=== PATIENT | male | born 1950 | race Hispanic/Latino ===

== ENCOUNTER 2021-03-08 06:58 | Day surgery (SDC) | payer MEDICARE, OTHER ==
[2021-03-04 13:36] LABS: Hematocrit 45.6 % (35.5-45.6); Mean Corpuscular HGB Conc 33 % (32-34); Mean Corpuscular Volume 96 fl (84-94); Platelet Count 240 K/mm3 (140-440); Red Blood Count 4.77 M/mm3 (3.65-5.03); Red Cell Distribution Width 14.5 % (13.2-15.2)
[2021-03-04 13:51] LABS: Blood Urea Nitrogen 12 mg/dL (9-20); Calcium 9.1 mg/dL (8.4-10.2); Hemolysis Index 1
[2021-03-04 14:02] LABS: BUN/Creatinine Ratio 17
--- NOTE | 2021-03-04 15:16 | Anesthesia Consultation ---
Anesthesia Consult and Med Hx Date of service: 03/08/21 - Airway ROM Head & Neck: Inadequate (restricted extension) Mental/Hyoid Distance: Adequate Mallampati Class: Class III Intubation Access Assessment: Possibly Difficult - Pulmonary Exam CTA: Yes - Cardiac Exam Cardiac Exam: RRR - Pre-Operative Health Status ASA Pre-Surgery Classification: ASA3 Proposed Anesthetic Plan: General - Pulmonary Hx Smoking: Yes (former smoker quit 30 yrs) Hx Respiratory Symptoms: No Hx Sleep Apnea: Yes (+ CPAP) - Cardiovascular System Hx Hypertension: Yes Hx Heart Attack/AMI: No (reports recent cardiology visit w/ TTE and ST; records requested) Hx Percutaneous Transluminal Coronary Angioplasty (PTCA): No Hx Cardia Arrhythmia: No - Central Nervous System Hx Neuromuscular Disorder: Yes (Parkinson's disease) CVA: No - Gastrointestinal Hx Gastroesophageal Reflux Disease: Yes - Endocrine Hx Renal Disease: No Hx Liver Disease: No Hx Non-Insulin Dependent Diabetes: Yes Hx Thyroid Disease: No - Other Systems Hx Obesity: Yes (BMI 33) - Additional Comments Anesthesia Medical History Comments: Patient reports excessive salivation 2/2 Parkinson's disease and occasional dysphagia/coughing with pills and liquids. Patient states that he has not had problem when missing 1 or 2 doses of usual meds however he was instructed to continue Parkinson's medications DOS. He also complains of left parasternal pain related to a prior fall for which imaging/workup has shown no fracture and may be related to cartilage injury.
[~2021-03-08 06:58] MED LIST: LACTATED RINGERS 1,000 ML IV SCH
[2021-03-08] MEDS ORDERED: ONDANSETRON 4 MG/2 ML INJ IV PRN (07:22)
[2021-03-08] MEDS ORDERED: HYDROmorphone 1 MG/1 ML INJ IV PRN ×2 (07:22)
--- NOTE | 2021-03-08 07:22 | Anesthesia Day of Surgery ---
Anesthesia Day of Surgery - Day of Surgery Patient Examined: Yes Patient H&P Reviewed: Yes Patient is NPO: Yes
[2021-03-08] MEDS ORDERED: MIDAZOLAM 2 MG/2 ML INJ IV NR (08:00)
[2021-03-08] MEDS ORDERED: propofoL 200 MG/20 ML VIAL IV ONE (09:01)
[2021-03-08] MEDS ORDERED: WATER FOR IRRIG STERILE 2000 ML IR ONE (09:25)
[2021-03-08] MEDS ORDERED: IOHEXOL 300 MG/ML 50ML IV ONE (09:25)
[2021-03-08] MEDS ORDERED: LIDOCAINE PF 100 MG/5 ML (CARDIAC SYRINGE) IV ONE (09:38)
[2021-03-08] MEDS ORDERED: ONDANSETRON 4 MG/2 ML INJ ONE (09:38)
--- NOTE | 2021-03-08 09:47 | Post Operative Note ---
Date of procedure: 03/08/21 Pre-op diagnosis: r hydro stones Post-op diagnosis: same Findings: severe hydro strictures Procedure: dil beth morrow Anesthesia: GETA Surgeon: ELISHA PARSONS Estimated blood loss: none Pathology: none Condition: stable Disposition: PACU
--- NOTE | 2021-03-08 09:49 | Discharge Summary ---
Short Stay Discharge Plan Activity: other (no straining ) Weight Bearing Status: Full Weight Bearing Diet: low fat, low cholesterol, low salt Special Instructions: other (inc fluids ) Durable Medical Equipment Needed Upon Discharge: other (hong care ) Follow up with: DR KAROLINA [Other] - 7 Days ELISHA PARSONS MD [Staff Physician] - 7 Days
[2021-03-08 11:53] VITALS: BP 138/82
--- NOTE | 2021-03-08 12:43 | Fluoroscopy Report ---
Retrograde urography right INDICATION: Hydronephrosis. Nephrolithiasis IMPRESSION: Successful placement of a right double-J ureteral stent. Mild right hydronephrosis. Fluoroscopy time: 1. 5 minutes. Fluoroscopic images: 9 views. Signer Name: Kirby Agosto MD Signed: 03/08/2021 12:35 PM Workstation Name: [id number]
--- NOTE | 2021-03-08 13:00 | Post Anesthesia Evaluation ---
- Post Anesthesia Evaluation Patient Participated: Yes Airway Patent: Yes Stable Respiratory Function: Yes Nausea/Vomiting: No Temp > 96.8F: Yes Pain Manageable: Yes Adequeate Hydration: Yes Anesthesia Complications: No Block Receding Appropriately: Not Applicable Patient on Ventilator: No
--- NOTE | 2021-03-11 12:21 | Operative Report ---
DATE OF SURGERY: 03/08/2021 PREOPERATIVE DIAGNOSIS: Severe right hydronephrosis, right renal stones. POSTOPERATIVE DIAGNOSIS: Severe right hydronephrosis, right renal stones with evidence of urethral stricture and UPJ narrowing. PROCEDURES: Cystoscopy, urethral dilatation, right retrograde, right double-J stent. SURGEON: Dr. Foster. ANESTHESIA: General. FINDINGS: This is a gentleman with moderately severe right hydronephrosis. He has intermittent pain. He now presents for treatment. DESCRIPTION OF PROCEDURE: The patient was brought to the OR and placed on the operating table. Following induction of anesthesia, placed in lithotomy position, prepped and draped in the usual sterile fashion. Cystourethroscopy showed a stricture. A wire coiled in the kidney. This was dilated to 20 Pashto. At this point, the bladder was entered. There was some mild trilobar hypertrophy. The bladder was well visualized with 30 and 70 degree lenses. There were no papillary lesions. At that point, the UPJ retrograde showed a severe narrowing, almost a kink in the UPJ. No filling defect. A wire unkinked the ureter and a double-J was placed. There were no stones that were obvious in the ureter. No ureteroscopy was performed. The patient tolerated the procedure well. The plan will be follow up catheter removal and then a nuclear scan to assess the function and possible lithotripsy. TID: [id number] RECEIPT: [id number] JOSHUA/STARLA
== END 2021-03-08 12:00 | disposition home or self-care (01) ==
LOC: OR 06:58
PROVIDERS: ATTEND Urology
DX: N13.2 Hydronephrosis with renal and ureteral calculous obstruction (principal); Z20.822 Contact with and (suspected) exposure to COVID-19; I10 Essential (primary) hypertension; E78.00 Pure hypercholesterolemia, unspecified; G47.30 Sleep apnea, unspecified; K21.9 Gastro-esophageal reflux disease without esophagitis; E11.9 Type 2 diabetes mellitus without complications; E66.9 Obesity, unspecified; Z72.89 Other problems related to lifestyle; Z88.0 Allergy status to penicillin; Z79.899 Other long term (current) drug therapy; Z79.84 Long term (current) use of oral hypoglycemic drugs; Z79.82 Long term (current) use of aspirin; Z98.41 Cataract extraction status, right eye; Z98.42 Cataract extraction status, left eye; Z90.49 Acquired absence of other specified parts of digestive tract; Z98.890 Other specified postprocedural states; Z68.33 Body mass index [BMI] 33.0-33.9, adult; Z87.891 Personal history of nicotine dependence
CPT/HCPCS: 36415; 52332; 74420; 80048; 82962; 85027; A4217; C1726; C1769; C2617; J1956; J2001; J2405; J2704; J7120; Q9967; U0003

== ENCOUNTER 2021-06-24 07:08 | Day surgery (SDC) | payer OTHER ==
[~2021-06-24 07:08] MED LIST changes: +IOHEXOL 300 MG/ML 50ML IV ONE; +WATER FOR IRRIG STERILE 1,500 ML BOTTLE IR ONE; +WATER FOR IRRIG STERILE 2000 ML IR ONE
--- NOTE | 2021-06-24 09:37 | Anesthesia Consultation ---
Anesthesia Consult and Med Hx Date of service: 06/24/21 - Airway Anesthetic Teeth Evaluation: Good ROM Head & Neck: Adequate Mental/Hyoid Distance: Adequate Mallampati Class: Class II Intubation Access Assessment: Probably Good (previous LMA 4) - Pre-Operative Health Status ASA Pre-Surgery Classification: ASA3 Proposed Anesthetic Plan: General - Pulmonary Hx Smoking: Yes (former smoker quit 30 yrs) Hx Respiratory Symptoms: No Hx Sleep Apnea: Yes (no CPAP recently) - Cardiovascular System Hx Hypertension: Yes (took antihypertensives this morning) Hx Heart Attack/AMI: No (normal EF, neg perfusion study this year) Hx Percutaneous Transluminal Coronary Angioplasty (PTCA): No Hx Cardia Arrhythmia: No - Central Nervous System Hx Neuromuscular Disorder: Yes (Parkinson's disease; took usual meds this morning) CVA: No - Gastrointestinal Hx Gastroesophageal Reflux Disease: Yes (controlled with prilosec) - Endocrine Hx Renal Disease: No Hx Liver Disease: No Hx Non-Insulin Dependent Diabetes: Yes Hx Thyroid Disease: No - Other Systems Hx Obesity: Yes (BMI 33) - Additional Comments Anesthesia Medical History Comments: No hx anesthetic complications.
--- NOTE | 2021-06-24 09:37 | Anesthesia Day of Surgery ---
Anesthesia Day of Surgery - Day of Surgery Patient Examined: Yes Patient H&P Reviewed: Yes Patient is NPO: Yes Beta Blockers: Yes (propanolol)
[2021-06-24 09:52] LABS: Blood Urea Nitrogen 15 mg/dL (9-20); Calcium 9.4 mg/dL (8.4-10.2); Hemolysis Index 117
[2021-06-24] MEDS ORDERED: GENTAMICIN/NS 80 MG/100 ML 100 ML IV NR (10:07)
[2021-06-24] MEDS ORDERED: GENTAMICIN 40 MG/ML VIAL 2 ML ONE (10:10)
[2021-06-24 10:17] LABS: BUN/Creatinine Ratio 30
[2021-06-24] MEDS ORDERED: LIDOCAINE PF 100 MG/5 ML (CARDIAC SYRINGE) IV ONE (10:29)
[2021-06-24] MEDS ORDERED: propofoL 200 MG/20 ML VIAL IV ONE (10:29)
[2021-06-24] MEDS ORDERED: ONDANSETRON 4 MG/2 ML INJ ONE (10:29)
[2021-06-24] MEDS ORDERED: fentaNYL 100 MCG/2 ML INJ ONE (10:29)
[2021-06-24] MEDS ORDERED: dexAMETHasone 20 MG/5 ML VIAL ONE (10:32)
[2021-06-24] MEDS ORDERED: PHENYLEPHRINE/NS 1,000 MCG/10 ML SYRINGE (OR USE) IV ONE (11:40)
[2021-06-24] MEDS ORDERED: WATER FOR IRRIG STERILE 1,500 ML BOTTLE IR ONE (11:47)
[2021-06-24] MEDS ORDERED: WATER FOR IRRIG STERILE 2000 ML IR ONE (11:47)
--- NOTE | 2021-06-24 11:59 | Short Stay Summary ---
Short Stay Documentation Date of service: 06/24/21 - History H&P: obtained from office - Allergies and Medications Current Medications: Allergies Penicillins Allergy (Verified 03/03/21 11:59) Swelling Home Medications Medication Instructions Recorded Confirmed Last Taken Type Aflibercept [Eylea] 2 mg INTRAVITRE [id number] 03/04/21 06/09/21 Unknown History Alfuzosin HCl [Alfuzosin HCl ER] 10 mg PO DAILY 03/04/21 06/09/21 03/07/21 09:00 History Aspirin [Aspirin BABY CHEW TAB] 81 mg PO DAILY 03/04/21 06/09/21 03/01/21 09:00 History Carbidopa/Levodopa [Rytary ER 48.75 mg PO TID 03/04/21 06/24/21 06/24/21 07:00 History 48.75 mg-195 mg Cap] Ergocalciferol (Vitamin D2) 2,000 units PO DAILY 03/04/21 06/09/21 03/07/21 09:00 History [Vitamin D2] Finasteride [Proscar] 5 mg PO DAILY 03/04/21 06/09/21 03/07/21 09:00 History Krill/Om-3/Dha/Epa/Phospho/Ast 1 tab PO DAILY 03/04/21 06/09/21 03/07/21 09:00 History [Megared [place]-3 Krill 350 mg] Losartan/Hydrochlorothiazide 50 mg PO DAILY 03/04/21 06/09/21 03/07/21 09:00 History [Losartan-Hctz 50-12.5 mg Tab] Lutein 10 mg PO BID 03/04/21 06/09/21 03/07/21 17:00 History Multivit-Mins/Iron/Folic/Lycop 1 tab PO DAILY 03/04/21 06/09/21 03/07/21 09:00 History [Centrum Men's Tablet] Omeprazole Magnesium [Prilosec] 10 mg PO DAILY 03/04/21 06/24/21 06/24/21 07:00 History Pramipexole [Mirapex] 1.5 mg PO DAILY 03/04/21 06/24/21 06/24/21 07:00 History Rasagiline Mesylate [Azilect] 1 mg PO QDAY 03/04/21 06/24/21 06/24/21 10:03 History Simvastatin [Zocor] 5 mg PO DAILY 03/04/21 06/09/21 03/07/21 20:00 History Vardenafil HCl [Levitra] 20 mg PO PRN PRN 03/04/21 06/09/21 Unknown History clonazePAM [Klonopin] 1 mg PO BID 03/04/21 06/09/21 03/07/21 17:00 History metFORMIN [Glucophage] 500 mg PO BID 03/04/21 06/09/21 03/07/21 17:00 History propranoloL [Inderal] 80 mg PO DAILY 03/04/21 06/24/21 06/24/21 07:00 History Active Medications Lactated Ringer's (Lactated Ringers) 1,000 mls @ 100 mls/hr IV DIRECT [place] Stop: 06/24/21 23:59 Gentamicin Sulfate/Sodium Chloride (Gentamicin/Ns 80 Mg/100 Ml) 100 mls @ 200 mls/hr IV ONCE NR; Protocol Stop: 06/24/21 13:00 - Brief post op/procedure progress note Date of procedure: 06/24/21 Pre-op diagnosis: rt renal stone, indwelling stent Post-op diagnosis: same Procedure: RT ESWL, cysto stent removal Anesthesia: GETA Surgeon: ERIN JUAN Condition: stable - Hospital course Hospital course: bactrim, norco, post op info on chart - Disposition Condition at discharge: Stable Disposition: 01 HOME / SELF CARE / HOMELESS Short Stay Discharge Plan Follow up with: DR KAROLINA [Other] - 7 Days
--- NOTE | 2021-06-24 12:46 | Operative Report ---
DATE OF SURGERY: 06/24/2021 DATE OF SURGERY: 06/24/2021 PREOPERATIVE DIAGNOSIS: Right 8 mm stone with indwelling stent. POSTOPERATIVE DIAGNOSIS: Right 8 mm stone with indwelling stent. PROCEDURES PERFORMED: Cystoscopy, stent removal, right extracorporal shockwave lithotripsy. SURGEON: Gabriel Gordon M.D. ANESTHESIA: General. ESTIMATED BLOOD LOSS: Minimal. FLUIDS: Crystalloid. COMPLICATIONS: No complications. INDICATIONS: This patient is a 70-year-old gentleman seen by Dr. Foster in the office several months ago for hydronephrosis. He underwent cystoscopy and stent placement. Due to the logistical reasons, it was difficult to coordinate his care, initially wanted the procedure done at another facility. Preoperatively, I spoke to Christina Grady, our manufacturing scheduler, and the patient and his regarding treatment today. The patient had mentioned scrotal mass that may be removed, which was not to be done today per Dr. Foster. After a detailed discussion, we all agreed, we will proceed with cystoscopy, stent removal and lithotripsy. Risks, benefits, and complications were explained. DESCRIPTION OF PROCEDURE: The patient was taken to the operative suite, placed in a supine position. After adequate general anesthesia, the stone was localized in 2 planes using fluoroscopy. Extracorporal shockwave lithotripsy was administered with a maximum kV of 8 and 2500 shocks. A 5-minute renal pause after 200 shocks was performed. He was also prepped and draped while in supine position. Flexible cystoscopy was performed and no urethral abnormalities. Prostate minimally obstructing, obvious stone in the right ureter, which was removed under fluoroscopy. The patient tolerated the procedure well and was extubated and taken to recovery room. He will go home on Bactrim and [place] and follow up with Dr. Foster. TID: [id number] RECEIPT: [id number] CHIRAG/BRIGHT/MINI
[2021-06-24 13:24] VITALS: BP 141/74
--- NOTE | 2021-06-24 14:47 | Post Anesthesia Evaluation ---
- Post Anesthesia Evaluation Patient Participated: Yes Airway Patent: Yes Stable Respiratory Function: Yes Nausea/Vomiting: No Temp > 96.8F: Yes Pain Manageable: Yes Adequeate Hydration: Yes Anesthesia Complications: No
== END 2021-06-24 07:09 | disposition home or self-care (01) ==
LOC: OR 07:08
PROVIDERS: ATTEND Urology
DX: N20.1 Calculus of ureter (principal); I10 Essential (primary) hypertension; K21.9 Gastro-esophageal reflux disease without esophagitis; E11.9 Type 2 diabetes mellitus without complications; E66.9 Obesity, unspecified; E78.00 Pure hypercholesterolemia, unspecified; M19.90 Unspecified osteoarthritis, unspecified site; G47.30 Sleep apnea, unspecified; F41.9 Anxiety disorder, unspecified; Z87.891 Personal history of nicotine dependence; Z90.49 Acquired absence of other specified parts of digestive tract; Z98.890 Other specified postprocedural states; Z79.84 Long term (current) use of oral hypoglycemic drugs; Z79.899 Other long term (current) drug therapy; Z88.0 Allergy status to penicillin; Z68.33 Body mass index [BMI] 33.0-33.9, adult
CPT/HCPCS: 36415; 50590; 52352; 80048; 82962; A4217; C1758; C1769; J1100; J1580; J2001; J2370; J2405; J2704; J3010; J7120